=== PATIENT | female | born 1980 | race Caucasian/White ===

== ENCOUNTER 2017-05-19 00:54 | Emergency (ER) | payer SELFPAY ==
[~2017-05-19] VITALS: Ht 160 cm; Wt 72.6 kg
[2017-05-19] MEDS ORDERED: ONDANSETRON HCL 4 MG/2 ML VIAL ONE (01:21)
[2017-05-19] MEDS ORDERED: HYDROmorphone HCL 2 MG/ML VL ONE (01:21)
[2017-05-19 01:22] LABS: Urine WBC None Seen /hpf (0 - 5)
[2017-05-19 01:32] LABS: Basophils # (auto) 0 uL; Basophils % (auto) 0.4 % (0.0-2.0); Eosinophils # (auto) 0 uL; Eosinophils % (auto) 0.1 % (0.0-7.0); Hematocrit 39.2 % (36.0-46.0); Hemoglobin 13.4 g/dL (12.2-16.2); Lymphocytes # (auto) 3.4 uL; Lymphocytes % (auto) 26.5 % (10.0-50.0); Mean Corpuscular Hemoglobin 31.2 pg (28.0-32.0); Mean Corpuscular Hgb Conc. 34.2 g/dL (32.0-36.0); Monocytes # (auto) 0.8 uL; Monocytes % (auto) 6.6 % (0.0-12.0); Neutrophils # (auto) 8.5 uL; Neutrophils % (auto) 66.4 % (37.0-80.0); Platelet Count (auto) 316 10^3/uL (140-450); Red Blood Cells 4.31 10^6/uL (4.0-5.20); Red Cell Distribution Width 12.8 % (11.8-14.3); White Blood Cell 12.8 10^3/uL (4.4-10.8)
[2017-05-19 01:36] LABS: Urine Amorphous Crystal MANY /hpf (None Seen); Urine Bacteria MOD /hpf (None Seen); Urine Blood Negative /uL (Negative); Urine Specific Gravity 1.013 (1.001-1.035)
[2017-05-19] MEDS ORDERED: SODIUM CHLORIDE 0.9% 1,000 ML IV ONE ×2 (01:36)
[2017-05-19] MEDS ORDERED: HYDROmorphone HCL 2 MG/ML VL IV ONE (01:45)
[2017-05-19] MEDS ORDERED: ONDANSETRON HCL 4 MG/2 ML VIAL IV ONE (01:45)
[2017-05-19] MEDS ORDERED: KETOROLAC TROMETH 30 MG/ML 1ML VIAL IV ONE (01:45)
[2017-05-19 01:46] LABS: INR 0.91 (0.9-1.15); Partial Thromboplastin Time 26.8 sec (22.64-33.71); Prothrombin Time 9.9 sec (9.37-12.3)
[2017-05-19 01:55] LABS: Albumin 3.7 g/dL (3.4-5.0); BUN/Creatinine Ratio 12.4; Calcium 10.6 mg/dL (8.5-10.1); Potassium 3.5 mmol/L (3.5-5.1)
[2017-05-19 01:58] LABS: Bilirubin, Total 0.4 mg/dL (0.2-1.0); Total Protein 7.3 g/dL (6.4-8.2)
[2017-05-19 03:40] VITALS: BP 132/82
== END 2017-05-19 04:00 | disposition home or self-care (01) ==
LOC: ER 00:55
DX: N20.0 Calculus of kidney (principal); R11.2 Nausea with vomiting, unspecified
CPT/HCPCS: 36415; 74176; 80053; 81001; 81025; 82150; 83690; 85025; 85610; 85730; 96361; 96374; 96375; 99285; J1170; J1885; J2405; J7030

== ENCOUNTER 2017-05-22 22:03 | Emergency (ER) | payer OTHER ==
[~2017-05-22] VITALS: Ht 160 cm; Wt 72.6 kg
[2017-05-22 22:31] VITALS: BP 157/66
[2017-05-23] MEDS ORDERED: HYDROcodone-ACET 10/325MG TAB PO ONE
[2017-05-23] MEDS ORDERED: KETOROLAC TROMETH 60MG/2ML VIAL IM ONE
== END 2017-05-23 00:32 | disposition home or self-care (01) ==
LOC: ER 22:03
DX: N20.0 Calculus of kidney (principal)
CPT/HCPCS: 96372; 99283; J1885